=== PATIENT | female | born 1950 | race Caucasian/White ===

== ENCOUNTER 2022-01-04 05:33 | Observation (INO) | payer MEDICARE, OTHER ==
[~2022-01-04 05:33] MED LIST: ACETAMINOPHEN TAB 500 MG TAB PO PRN; GABAPENTIN 300 MG CAP PO PRN; MELOXICAM 7.5 MG TAB PO PRN; TRANEXAMIC ACID IN NACL,ISO-OS 1,000 MG in SALINE 1 100ML.BAG IVPB PRN
[2022-01-04] MEDS ORDERED: ONDANSETRON 4 MG/2 ML VIAL IVP ONE ×2 (05:48→08:59)
[2022-01-04] MEDS ORDERED: LIDOCAINE 1% (10MG/ML) FOR IV START INTRADERMA PRN (05:48)
[2022-01-04] MEDS: LACTATED RINGERS 1,000 ML IV SCH ×2 (05:59→10:24)
[2022-01-04] MEDS ORDERED: DEXAMETHASONE SOD PHOSPHATE 4 MG/ML 1 ML VIAL IVP ONE (06:31)
[2022-01-04] MEDS ORDERED: MIDAZOLAM 2 MG/2 ML VIAL IVP ONE (06:40)
[2022-01-04] MEDS ORDERED: fentaNYL (PF) 50 MCG/ML 2 ML AMP IVP ONE (06:40)
[2022-01-04] MEDS ORDERED: HYDROmorphone (PF) 1 MG/ML ONE (06:58)
[2022-01-04] MEDS ORDERED: SUCCINYLCHOLINE CHLORIDE 200 MG/10 ML VIAL IV ONE (06:58)
[2022-01-04] MEDS ORDERED: TRANEXAMIC ACID IN NACL,ISO-OS 1,000 MG/100 ML BAG ONE (06:58)
[2022-01-04] MEDS ORDERED: LIDOCAINE 2% INJ 20 MG/ML (2 ML VIAL) ONE (06:58)
[2022-01-04] MEDS ORDERED: PROPOFOL 10 MG/ML 20 ML VIAL IV ONE (06:58)
[2022-01-04] MEDS ORDERED: SODIUM CHLORIDE 0.9% (PF) 10 ML VIAL ONE (06:58)
[2022-01-04] MEDS ORDERED: ROPIVACAINE 5 MG/ML 30 ML VIAL ONE (06:58)
[2022-01-04] MEDS ORDERED: fentaNYL (PF) 50 MCG/ML 2 ML AMP ONE (06:58)
[2022-01-04] MEDS ORDERED: HYDROmorphone 0.5 MG/0.5 ML SYRINGE IVP PRN ×3 (07:00→08:47)
[2022-01-04] MEDS ORDERED: ceFAZolin 1,000 MG in SODIUM CHLORIDE 0.9% 1,000 ML IRRIGATION ONE (07:02)
[2022-01-04] MEDS ORDERED: ROPIVACAINE 0.2%-NS ON-Q PUMP 1,090 MG, EMPTY PAIN BALL 1 EACH MISCELLANE PRN (07:49)
--- NOTE | 2022-01-04 07:50 | P.ANPRN ---
Procedure Note - Anesthesia - Nerve Block Performed Right Adductor Canal Infusion Time Out Performed: Yes Date of Procedure: 01/04/22 Procedure Start Time: 06:34 Procedure Stop Time: 06:38 Location of Patient: PreOp Indication: Requested by Surgeon Specifically requested for management of pain by DrMayela: Papo Benitez Sedation Type: Sedate with meaningful contact maintained Preparation: Sterile Prep, Sterile Dressing Position: Supine Catheter: Indwelling Needle Types: Pajunk Needle Gauge: 18 Ultrasound used to visualize needle placement: Yes Ultrasound used to observe medication spread: Yes Injectate: 0.5% Ropivacaine (see comment for volume) (15 ml +10 ml NS PF) Blood Aspirated: No Pain Paresthesia on Injection Noted: No Resistance on Injection: Normal Image Stored and Saved: Yes Events: Uneventful and Well Tolerated
--- NOTE | 2022-01-04 07:52 | P.ANPRN ---
Procedure Note - Anesthesia - Nerve Block Performed Right iPack Single Time Out Performed: Yes Date of Procedure: 01/04/22 Procedure Start Time: 06:39 Procedure Stop Time: 06:45 Location of Patient: PreOp Indication: Requested by Surgeon Specifically requested for management of pain by DrMayela: Papo Benitez Sedation Type: Sedate with meaningful contact maintained Preparation: Sterile Prep Position: Left Lateral Needle Types: Pajunk Needle Gauge: 21 Ultrasound used to visualize needle placement: Yes Ultrasound used to observe medication spread: Yes Injectate: 0.5% Ropivacaine (see comment for volume) (15 ml +10 ml NS PF) Blood Aspirated: No Pain Paresthesia on Injection Noted: No Resistance on Injection: Normal Image Stored and Saved: Yes Events: Uneventful and Well Tolerated
[2022-01-04] MEDS ORDERED: LACTATED RINGERS 1,000 ML IV ONE (08:30)
[2022-01-04] MEDS ORDERED: NA PHOS,M-B/NA PHOS,DI-BA 133 ML ENEMA RECTAL PRN (08:47)
[2022-01-04] MEDS ORDERED: bisacodyL 10 MG SUPP RECTAL PRN (08:47)
[2022-01-04] MEDS ORDERED: MAGNESIUM HYDROXIDE 2,400 MG/10 ML CUP PO PRN (08:47)
[2022-01-04] MEDS ORDERED: ONDANSETRON 4 MG/2 ML VIAL IVP PRN (08:47)
[2022-01-04] MEDS ORDERED: NALOXONE 0.4 MG/ML 1 ML VIAL IV PRN (08:47)
--- NOTE | 2022-01-04 08:53 | P.OP ---
Date of Procedure: 01/04/22 Preoperative Diagnosis: Severe osteoarthritis right knee Postoperative Diagnosis: Severe osteoarthritis right knee Procedure(s) Performed: Right total knee arthroplasty Implants: Guzman [employer] Nephew Journey II CR Oxinium cruciate retaining femoral component size 6, right Guzman [employer]hew Journey nonporous tibial baseplate size 5, right Guzman [employer]hew Journey II, XLPE Deep Dished articular insert, size 10 mm, Size 5-6, right Guz[employer]hew Journey Nguyen II resurfacing patellar component, oval, 35 mm All components were cemented using Palacos R bone cement The articulation is Oxinium on polyethylene Anesthesia: IVETH Surgeon: Papo Benitez [employer] Teacher #1: Karissa Duque Estimated Blood Loss (ml): 30 Pathology: other (Bone and cartilage) Condition: stable Disposition: PACU Indications for Procedure: After failure of conservative treatment we discussed the surgical and nonsurgical treatment options at length. Patient wishes to proceed with a total knee arthroplasty. Complications specific to this procedure were discussed at length, including but not limited to infection, bleeding, stiffness, and nerve injury. Covid-19 was also discussed at length with the patient, and they are aware of the current policies and procedures. The patient was given the option of delaying surgery, but they elect to proceed knowing these risks. Patient is aware of all these complications and informed consent was obtained Operative Findings: The operative findings are consistent with severe osteoarthritis of the right knee Description of Procedure: Patient was seen in the preoperative area and the consent was reviewed and the operative site was marked with a skin marker. The patient verified the procedure and the operative site. An adductor canal pain catheter and an iPACK block was placed by anesthesia in the preoperative area. The patient was then brought to the operating room and given preoperative antibiotics intravenously. A gram of transexamic acid was given intravenously. A general anesthetic was administered by the anesthesia department. A tourniquet was placed on the upper thigh and the lower extremity was prepped with chlorhexidine and draped in usual sterile fashion. A universal timeout was then performed which confirmed the patient's name, surgical site, ALLERGIES, and consent. The lower extremity was then exsanguinated and tourniquet was inflated to 250 mmHg. A standard anterior midline approach to the knee was performed. The skin and subcutaneous tissue were sharply dissected down to the patellar tendon. A medial parapatellar arthrotomy was then performed. The knee was then extended, the patellar was everted, and the knee was again flexed. The infra-patellar fat pad was removed in order to enhance exposure. The anterior horns of both menisci were excised, and a release was performed to the posterior medial aspect of the knee. On gross visual inspection, there was complete loss of articular cartilage in the medial and patellofemoral joint spaces. There was also significant cartilage damage in the lateral compartment. There were multiple periarticular osteophytes globally about the knee which were then removed with a Ronguer. The femoral canal was then opened with the 9.5 mm intramedullary drill. The 8 mm intramedullary bartolome was then inserted into the femoral canal with the distal femoral cutting guide set for 5 of valgus. The distal femoral cutting block was then pinned in place. The intramedullary bartolome was then removed, and the distal femur was then cut. The cutting block was then removed and the cut was checked for symmetry. The resected bone was then measured to confirm the appropriate distal femoral resection. Next, the sizing guide was then placed and set for 3 external rotation based off of the epicondylar axis and Whitesides line. Pins were then placed and the drill holes, and the femur was sized with the sizing stylus. The pins were then removed, and the sizing guide was then removed. The spikes of the femoral block was then placed into the predrilled holes, and malleted into place. Two 45 mm pins were then placed into the fixation holes on the cutting block. An gerry wing was then used to ensure there would be no notching with the anterior cut. The anterior condyles were cut without notching. The anterior chord cut was then performed, followed by the posterior cut, posterior chamfer cut, and the anterior chamfer cut. The collateral ligaments were protected during the entire process. The cutting block was then removed. Any remaining bone and osteophytes were removed from the femur with a Ronguer. The femoral canal was plugged with autologous bone. Attention was then directed to the tibia. The remaining ACL was removed with a Ronguer, and the tibia was then gently subluxed forward with a large bent knee retractor. Any remaining menisci were excised. The posterior lateral corner was cauterized in order to coagulate the lateral geniculate artery. The extra medullary tibial cutting guide was then placed, set for the appropriate rotation, slope, and depth of resection. The proximal tibia cutting guide was then pinned in place. Proximal tibia was then cut and sized. The femoral trial was placed. A narrow saw blade was then used to remove the anterior intracondylar femoral bone. The CR notch trial was then placed. The tibial trial was placed with the appropriate-sized insert. The knee was able to fully extend and flex to 130 and was stable throughout all range of motion. The knee was then extended and the patella was everted. Patella was then measured, and then using an osteotomy guide, the patella was cut at the appropriate level. The patella was then measured and drilled and the patella trial was then placed. The knee was then taken through range of motion with the patella trial and the patella tracked normally using the no thumbs technique. The knee was then extended patella trial was then removed and the patella was everted. Knee was then flexed and lug holes were drilled through the femoral trial and the femoral trial was then removed. The tibial was then re-exposed, and the tibial broach guide was then pinned in place after it was set for the appropriate rotation to allow for the most coverage without overhang. The tibia was then reamed and broached. The cut surfaces of bone were then irrigated with pulsatile lavage. The knee was also irrigated with Irrisept solution. The components were then opened, the cement was mixed, and the components were then cemented in place. The cement wa s allowed to harden with the knee in full extension. After the cemented hardened, the tourniquet was released and hemostasis was obtained. A second gram of transexamic acid was given intravenously. The knee was again irrigated. The knee was again taken through range of motion and found to be stable throughout all range of motion of 0-130, and the patella tracked normally. The fascia was then closed with 0 Vicryl followed by #2 strata fix suture. The subcutaneous tissue was closed with 3-0 Vicryl and 3-0 strata fix. Exofin glue was used for the skin and placed with the knee in flexion. After the glue had dried, and Optafoam silver impregnated dressing was applied. The patient was then transferred to recovery room in stable condition. The phlebotomist lab assistant FREDERIC Guillen was required due the complexity surgery and the need for a skilled kindergarten teacher assistant. She assisted in positioning, draping, retraction, and closure of the wound.
--- NOTE | 2022-01-04 09:23 | XR ---
EXAMINATION TYPE: XR knee limited RT DATE OF EXAM: 01/04/2022 9:18 AM INDICATION: Patient age:Female; 71 years old; Reason for study: Evaluation for Postop abnormality and alignment; PHH. COMPARISON: None. TECHNIQUE: The Right knee(s) was examined in frontal and lateral projections. FINDINGS: Postsurgical changes from right total knee arthroplasty with distal femoral and proximal tibial components. Hardware appears intact with appropriate alignment. No acute fracture or dislocati on. There is associated soft tissue swelling and gas. IMPRESSION: Postsurgical changes from right total knee arthroplasty. Hardware appears intact with appropriate ali gnment.
[2022-01-04] MEDS: HYDROcodone/APAP 7.5-325MG 1 EACH TAB PO PRN ×2 (13:59→20:56)
[2022-01-04] MEDS: SODIUM CHLORIDE 0.9% 1,000 ML IV SCH (15:02)
[2022-01-04] MEDS ORDERED: ALBUTEROL NEBULIZED 2.5 MG/3 ML INHALATION PRN (16:01)
[2022-01-04] MEDS ORDERED: LORazepam 0.5 MG TAB PO PRN (16:01)
[2022-01-04] MEDS: HYDROmorphone 0.5 MG/0.5 ML SYRINGE IVP PRN (16:54)
--- NOTE | 2022-01-04 17:37 | P.CONS ---
History of Present Illness - Reason for Consult Consult date: 01/04/22 - History of Present Illness Patient is a 71-year-old female with PMH of hypertension, depression, seasonal ALLERGIES, anxiety, history of PE the presents to [facility] for elective surgery. She underwent right total knee arthroplasty. [facility] is being consulted for medical management of this patient. Patient currently reports 8 out of 10 severity pain in her right knee. Urinating freely. No bowel movement yet. She denies any headache, lower extremity edema, nausea vomiting, fever or chills, cough, chest pain, shortness of breath, palpitations, changes in appetite or weight. She denies any dizziness, numbness/weakness/tingling of the extremities. Review of systems is performed and is negative except above. General: non toxic, no distress, appears at stated age Derm: warm, dry Head: atraumatic, normocephalic, symmetric Eyes: EOMI, no lid lag, anicteric sclera Mouth: no lip lesion, mucus membranes moist Cardiovascular: S1S2 reg, no murmur, positive posterior tibial pulse bilateral, Lungs: CTA bilateral, no rhonchi, no rales , no accessory muscle use Abdominal: soft, nontender to palpation, no guarding, no appreciable organomegaly Ext: no gross muscle atrophy, no edema, right knee dressing clean dry and intact Neuro: CN II-XI grossly intact, no focal neuro deficits Psych: Alert, oriented, appropriate affect #Hypertension #Depression #Seasonal ALLERGIES #Anxiety #History of pulmonary embolus Restart amlodipine and hydrochlorothiazide. Monitor vitals, adjust medication if necessary. Restart Lexapro. Restart Claritin. Ativan as needed for anxiety. Restart Eliquis. DVT prophylaxis: Eliquis Discussed with: Patient, nursing Anticipated discharge: 1-[address]: [facility] A total of 30 minutes was spent on the care of this complex patient more than 50% of the time was spent in counseling and care coordination. Past Medical History Past Medical History: Hyperlipidemia, Hypertension, Osteoarthritis (OA), Pulmonary Embolus (PE), Supraventricular Tachycardia (SVT) Additional Past Medical History / Comment(s): PE 15 yrs. ago, seasonal allergies History of Any Multi-Drug Resistant Organisms: None Reported Past Surgical History: Adenoidectomy, Cardiac Ablation, Hysterectomy, Orthopedic Surgery, Tonsillectomy Additional Past Surgical History / Comment(s): melissa thumb joints replaced, right knee arthroscopy Past Anesthesia/Blood Transfusion Reactions: No Reported Reaction Additional Past Anesthesia/Blood Transfusion Reaction / Comm: no blood transfusion reactions Past Psychological History: Anxiety, Depression Smoking Status: Former smoker Past Alcohol Use History: Rare Additional Past Alcohol Use History / Comment(s): quit smoking 20 yrs. ago, smoked occasionally, not daily Past Drug Use History: None Reported - Past Family History Mother Family Medical History: No Reported History Medications and Allergies Home Medications Medication Instructions Recorded Confirmed Type Albuterol Inhaler [Ventolin Hfa 1 - 2 puff INHALATION Q6H PRN 01/03/22 01/04/22 History Inhaler] Apixaban [Eliquis] 2.5 mg PO BID 01/03/22 01/04/22 History Ascorbic Acid [Vitamin C] 500 mg PO DAILY 01/03/22 01/04/22 History Aspirin 81 mg PO DAILY 01/03/22 01/04/22 History Cholecalciferol [Vitamin D3 (25 25 mcg PO DAILY 01/03/22 01/04/22 History Mcg = 1000 Iu)] Escitalopram [Lexapro] 10 mg PO DAILY 01/03/22 01/04/22 History Estradiol Cream [Estrace Cream 1 gm VAGINAL Q3D 01/03/22 01/04/22 History 0.01%] LORazepam [Ativan] 0.5 mg PO DAILY PRN 01/03/22 01/04/22 History Loratadine [Claritin] 10 mg PO DAILY 01/03/22 01/04/22 History Losartan Potassium [Cozaar] 50 mg PO DAILY 01/03/22 01/04/22 History Rosuvastatin Calcium 5 mg PO HS 01/03/22 01/04/22 History Zinc Gluconate [Zinc] 50 mg PO DAILY 01/03/22 01/04/22 History amLODIPine [Norvasc] 5 mg PO DAILY 01/03/22 01/04/22 History hydroCHLOROthiazide [Hydrodiuril] 25 mg PO DAILY 01/03/22 01/04/22 History HYDROcodone/APAP 7.5-325MG [[place] 1 - 2 tab PO Q6H PRN #32 tab 01/04/22 Rx 7.5-325] Sennosides [Senokot] 2 tab PO DAILY PRN #60 tablet 01/04/22 Rx Allergies Allergy/AdvReac Type Severity Reaction Status Date / Time No Known Allergies Allergy Verified 01/04/22 05:50 Physical Exam Vitals: Vital Signs Temp Pulse Pulse Resp BP BP Pulse Ox 01/04/22 14:11 97.7 F 86 16 112/66 94 L 01/04/22 13:20 82 16 111/63 97 01/04/22 12:30 88 16 110/66 98 01/04/22 12:00 80 16 106/63 98 01/04/22 11:30 84 16 99/59 97 01/04/22 11:00 85 16 110/63 98 01/04/22 10:30 83 16 104/63 96 01/04/22 10:00 80 16 117/58 96 01/04/22 09:35 77 16 109/57 94 L 01/04/22 09:20 81 16 99/57 95 01/04/22 09:04 85 16 93/55 98 01/04/22 08:49 67 16 91/51 95 01/04/22 08:34 97.3 F L 83 16 92/55 92 L 01/04/22 06:57 78 18 124/58 100 01/04/22 06:09 98.6 F 72 18 140/63 98 Intake and Output 01/04/22 01/04/22 01/04/22 06:59 14:59 22:59 Intake Total 100 2151 Output Total 30 Balance 100 2121 Intake: IV 100 2151 Output: Estimated Blood Loss 30 Other: # Voids 2 Weight 83.6 kg 83.6 kg
[2022-01-04] MEDS: SENNOSIDES-DOCUSATE SODIUM 1 EACH TAB PO SCH (20:56)
[2022-01-04] MEDS: APIXABAN 2.5 MG TABLET PO SCH (20:56)
[2022-01-04] MEDS: ATORVASTATIN 10 MG TAB PO SCH (20:56)
[2022-01-05] MEDS: HYDROmorphone 0.5 MG/0.5 ML SYRINGE IVP PRN ×5 (00:15→23:53)
[2022-01-05] MEDS: SODIUM CHLORIDE 0.9% 1,000 ML IV SCH ×2 (00:16→14:36)
[2022-01-05] MEDS: HYDROcodone/APAP 7.5-325MG 1 EACH TAB PO PRN ×4 (05:14→22:06)
--- NOTE | 2022-01-05 07:31 | P.PN ---
Progress Note - Text Progress Note Date: 01/05/22 patient was seen and evaluated at bedside. Status post postoperative day 1 f or right side total knee arthroplasty patient had adductor canal catheter for postop pain control. Patient rated pain at rest4-5 out of 10 in severity. Patient describes pain is aching, throbbing type on the sides of the knee and back of the knee. Patient started walking with support. With activity patient pain levels are 5-6 out of 10 in severity. With the help of oral pain medications pain levels are tolerable. Patient denied any weakness/ numbness in lower extremities. patient denied any fever, pain over the catheter site. Physical exam: Patient vital signs stable Patient is alert awake oriented 3 responding to all questions appropriately Examination of the catheter site showed dressing intact, no leaking fluid around the catheter, no redness, no tenderness over the catheter insertion area. plan: status post postoperative day 1 for right total knee arthroplasty with adductor canal catheter for pain control. Patient was discussed to continue the medication at the rate of 8 mL per hour until the pump is completely empty and instructed the patient how to discontinue the catheter.
[2022-01-05 09:00] LABS: Basophils # (A) 0.02 X 10*3/uL (0.00-0.10); Basophils % (A) 0.3 %; Eosinophils # (A) 0.02 X 10*3/uL (0.04-0.35); Eosinophils % (A) 0.3 %; HCT 29.4 % (37.2-46.3); Immature Grans, Automated 0.2 %; Lymphocytes # (A) 0.86 X 10*3/uL (0.90-5.00); Lymphocytes % (A) 14.8 %; MCH 32.1 pg (27.0-32.0); MCV 94.2 fL (80.0-97.0); Mean Platelet Volume 10.3 fL (9.5-12.2); Monocytes % (A) 13.7 %; NRBC Per 100 WBC 0 /100 WBCS (0.0-0.0); Neutrophils # (A) 4.11 X 10*3/uL (1.80-7.70); Neutrophils % (A) 70.7 %; Platelet Count 240 X 10*3/uL (140-440); RBC 3.12 X 10*6/uL (4.10-5.20); RDW 13.5 % (11.5-14.5); WBC 5.82 X 10*3/uL (4.50-10.00)
[2022-01-05] MEDS: LOSARTAN 50 MG TAB PO SCH (11:02)
[2022-01-05] MEDS: ASPIRIN 81 MG PO SCH (11:02)
[2022-01-05] MEDS: LORATADINE 10 MG TAB PO SCH (11:03)
[2022-01-05] MEDS: amLODIPine 5 MG TAB PO SCH (11:03)
[2022-01-05] MEDS: ESCITALOPRAM 10 MG TAB PO SCH (11:03)
[2022-01-05] MEDS: hydroCHLOROthiazide 25 MG TAB PO SCH (11:03)
[2022-01-05] MEDS: APIXABAN 2.5 MG TABLET PO SCH ×2 (11:03→20:06)
--- NOTE | 2022-01-05 12:53 | P.DS ---
Providers Expected date of discharge: 01/05/22 Attending physician: Papo Benitez Consults: 01/04/22 08:47 Consult Physician Routine Consulting Provider: Dawn Oliva Consult Reason/Comments: medical management Do you want consulting provider notified?: Yes Primary care physician: Physician Nonstaff - Discharge Diagnosis(es) (1) Osteoarthritis of right knee Current Visit: Yes Status: Acute (2) Status post total right knee replacement Current Visit: Yes Status: Acute Hospital Course: This is a 71year-old female with history of degenerative arthritis of the right knee. The patient has failed conservative outpatient treatment and elects to proceed with total right knee arthroplasty. The patient is evaluated by the primary care physician and cleared for surgery. The patient is admitted to [facility] on 01/04/2022 for total right knee arthroplasty. The procedure is performed without complication or sequelae. The patient is doing well postoperatively. Vital signs and labs are stable. The patient is discharged to Inpatient rehabilitation today in good condition. Please see med rec for accurate list of home medications. Patient Condition at Discharge: Good Plan - Discharge Summary Discharge Rx Participant: Yes New Discharge Prescriptions: New Sennosides [Senokot] 2 tab PO DAILY PRN #60 tablet PRN Reason: Constipation HYDROcodone/APAP 7.5-325MG [[place] 7.5-325] 1 - 2 tab PO Q6H PRN #32 tab PRN Reason: Pain No Action Ascorbic Acid [Vitamin C] 500 mg PO DAILY hydroCHLOROthiazide [Hydrodiuril] 25 mg PO DAILY Estradiol Cream [Estrace Cream 0.01%] 1 gm VAGINAL Q3D Cholecalciferol [Vitamin D3 (25 Mcg = 1000 Iu)] 25 mcg PO DAILY Apixaban [Eliquis] 2.5 mg PO BID Losartan Potassium [Cozaar] 50 mg PO DAILY Zinc Gluconate [Zinc] 50 mg PO DAILY Albuterol Inhaler [Ventolin Hfa Inhaler] 1 - 2 puff INHALATION Q6H PRN PRN Reason: Shortness Of Breath Loratadine [Claritin] 10 mg PO DAILY Escitalopram [Lexapro] 10 mg PO DAILY LORazepam [Ativan] 0.5 mg PO DAILY PRN PRN Reason: Anxiety amLODIPine [Norvasc] 5 mg PO DAILY Aspirin 81 mg PO DAILY Rosuvastatin Calcium 5 mg PO HS Discharge Medication List Albuterol Inhaler [Ventolin Hfa Inhaler] 1 - 2 puff INHALATION Q6H PRN 01/03/22 [History] Apixaban [Eliquis] 2.5 mg PO BID 01/03/22 [History] Ascorbic Acid [Vitamin C] 500 mg PO DAILY 01/03/22 [History] Aspirin 81 mg PO DAILY 01/03/22 [History] Cholecalciferol [Vitamin D3 (25 Mcg = 1000 Iu)] 25 mcg PO DAILY 01/03/22 [History] Escitalopram [Lexapro] 10 mg PO DAILY 01/03/22 [History] Estradiol Cream [Estrace Cream 0.01%] 1 gm VAGINAL Q3D 01/03/22 [History] LORazepam [Ativan] 0.5 mg PO DAILY PRN 01/03/22 [History] Loratadine [Claritin] 10 mg PO DAILY 01/03/22 [History] Losartan Potassium [Cozaar] 50 mg PO DAILY 01/03/22 [History] Rosuvastatin Calcium 5 mg PO HS 01/03/22 [History] Zinc Gluconate [Zinc] 50 mg PO DAILY 01/03/22 [History] amLODIPine [Norvasc] 5 mg PO DAILY 01/03/22 [History] hydroCHLOROthiazide [Hydrodiuril] 25 mg PO DAILY 01/03/22 [History] HYDROcodone/APAP 7.5-325MG [[place] 7.5-325] 1 - 2 tab PO Q6H PRN #32 tab 01/04/22 [Rx] Sennosides [Senokot] 2 tab PO DAILY PRN #60 tablet 01/04/22 [Rx] Follow up Appointment(s)/Referral(s): Papo Benitez DO [Doctor of Osteopathic Medicine] - 01/17/22 2:45 pm Activity/Diet/Wound Care/Special Instructions: Weightbearing as tolerated with a walker. CPM 5-6h daily as tolerated. Leave dressing intact. Dressing may be removed by home care nurse or by patient in 7 days. Then change dressing twice daily until follow up. May shower with initial dressing intact and after removal. If dressing become saturated, please remove. Recommend use of compression stockings daily until follow up to help prevent swelling and blood clots. May remove at night before sleeping. Please resume Eliquis. Please follow up with [facility] and call with any questions or concerns, . Discharge Disposition: TRANSFER TO SNF/ECF
--- NOTE | 2022-01-05 13:54 | P.PN ---
Subjective Progress Note Date: 01/05/22 Patient was seen and examined. No acute events overnight. Patient reports continued hip pain at the site of surgery. Continues to require Dilaudid. General: non toxic, no distress, appears at stated age Derm: warm, dry Head: atraumatic, normocephalic, symmetric Eyes: EOMI, no lid lag, anicteric sclera Mouth: no lip lesion, mucus membranes moist Cardiovascular: S1S2 reg, no murmur, positive posterior tibial pulse bilateral Lungs: CTA bilateral, no rhonchi, no rales , no accessory muscle use Ext: no gross muscle atrophy, no edema, right knee dressing clean dry and intact Neuro: no focal neuro deficits Psych: Alert, oriented, appropriate affect #Hypertension #Depression #Seasonal ALLERGIES #Anxiety #History of pulmonary embolus Restart amlodipine and hydrochlorothiazide. Monitor vitals, adjust medication if necessary. Restart Lexapro. Restart Claritin. Ativan as needed for anxiety. Restart Eliquis. DVT prophylaxis: Eliquis Discussed with: Patient, nursing Medically stable. Needs better pain management. Anticipate DC to SNF or home in the next 1-2 days. Case management on board. Objective - Vital Signs Vital signs: Vital Signs Temp 98.4 F 01/05/22 13:09 Pulse 71 01/05/22 13:09 Resp 16 01/05/22 13:09 BP 147/67 01/05/22 13:09 Pulse Ox 91 L 01/05/22 13:09 FiO2 Intake & Output 01/04/22 01/05/22 01/05/22 18:59 06:59 18:59 Intake Total 2151 Output Total 30 Balance 2120 Weight 83.6 kg Intake: IV 2151 Output: Estimated Blood Loss 30 Other: Voiding Method Toilet Toilet # Voids 2 4 2 - Labs CBC & Chem 7: 01/05/22 05:17 Labs: Abnormal Lab Results - Last 24 Hours (Table) 01/05/22 Range/Units 05:17 RBC 3.12 L (4.10-5.20) X 10*6/uL Hgb 10.0 L (12.0-15.0) g/dL Hct 29.4 L (37.2-46.3) % MCH 32.1 H (27.0-32.0) pg Lymphocytes # 0.86 L (0.90-5.00) X 10*3/uL Eosinophils # 0.02 L (0.04-0.35) X 10*3/uL
[2022-01-05] MEDS: ATORVASTATIN 10 MG TAB PO SCH (20:06)
[2022-01-05] MEDS: SENNOSIDES-DOCUSATE SODIUM 1 EACH TAB PO SCH (20:06)
[2022-01-06] MEDS: HYDROcodone/APAP 7.5-325MG 1 EACH TAB PO PRN ×4 (05:37→22:26)
[2022-01-06] MEDS: ASPIRIN 81 MG PO SCH (08:38)
[2022-01-06] MEDS: amLODIPine 5 MG TAB PO SCH (08:38)
[2022-01-06] MEDS: LORATADINE 10 MG TAB PO SCH (08:38)
[2022-01-06] MEDS: APIXABAN 2.5 MG TABLET PO SCH ×2 (08:38→20:18)
[2022-01-06] MEDS: LOSARTAN 50 MG TAB PO SCH (08:38)
[2022-01-06] MEDS: hydroCHLOROthiazide 25 MG TAB PO SCH (08:38)
[2022-01-06] MEDS: ESCITALOPRAM 10 MG TAB PO SCH (08:38)
--- NOTE | 2022-01-06 12:44 | P.PN ---
Subjective Progress Note Date: 01/06/22 This is a 71-year-old female who is status post right total arthroplasty. This is postoperative day #2 and patient is seen and evaluated at bedside today. Patient states that she is doing well and her pain is controlled. Patient states that she feels she needs a little more time with physical therapy before she goes home. Objective - Vital Signs Vital signs: Vital Signs Temp 98.0 F 01/06/22 12:26 Pulse 80 01/06/22 07:20 Resp 16 01/06/22 07:20 BP 118/67 01/06/22 07:20 Pulse Ox 93 L 01/06/22 07:20 FiO2 Intake & Output 01/05/22 01/06/22 01/06/22 18:59 06:59 18:59 Intake Total 180 Balance 180 Intake: Oral 180 Other: Voiding Method Toilet # Voids 1 4 1 - Exam Vital signs are stable. Patient is in no acute distress and is alert and oriented 3. Calf is soft and nontender to palpation. Dressing is clean, dry, and intact. Patient has full foot and ankle motion without pain or difficulty. Sensation intact. Neurovascular status and circulatory status are intact. - Labs CBC & Chem 7: 01/05/22 05:17 Assessment and Plan (1) Osteoarthritis of right knee Current Visit: Yes Status: Acute Code(s): M17.11 - UNILATERAL PRIMARY OSTEOARTHRITIS, RIGHT KNEE SNOMED Code(s): 771687298129504 (2) Status post total right knee replacement Current Visit: Yes Status: Acute Code(s): Z96.651 - PRESENCE OF RIGHT ARTIFICIAL KNEE JOINT SNOMED Code(s): 5602865669442 Plan: #1 Continue with routine postoperative care and pain control, leave dressing in place for seven days. #2 Anticoagulation with Eliquis. #3 Physical therapy and CPM today. #4 Appreciate input from medicine. #5 Anticipate discharge home with home care tomorrow.
--- NOTE | 2022-01-06 14:43 | P.PN ---
Subjective Progress Note Date: 01/06/22 Patient was seen and examined. No acute events overnight. Patient reports continued hip pain at the site of surgery. Working with PT and OT. General: non toxic, no distress, appears at stated age Derm: warm, dry Head: atraumatic, normocephalic, symmetric Eyes: EOMI, no lid lag, anicteric sclera Mouth: no lip lesion, mucus membranes moist Cardiovascular: S1S2 reg, no murmur, positive posterior tibial pulse bilateral Lungs: CTA bilateral, no rhonchi, no rales , no accessory muscle use Ext: no gross muscle atrophy, no edema, right knee dressing clean dry and intact Neuro: no focal neuro deficits Psych: Alert, oriented, appropriate affect #Hypertension #Depression #Seasonal ALLERGIES #Anxiety #History of pulmonary embolus Restart amlodipine and hydrochlorothiazide. Monitor vitals, adjust medication if necessary. Restart Lexapro. Restart Claritin. Ativan as needed for anxiety. Restart Eliquis. DVT prophylaxis: Eliquis Discussed with: Patient, nursing Medically stable. Needs better pain management. Rejected from SNF. Plans on DC home. Objective - Vital Signs Vital signs: Vital Signs Temp 98.0 F 01/06/22 12:26 Pulse 80 01/06/22 07:20 Resp 16 01/06/22 07:20 BP 118/67 01/06/22 07:20 Pulse Ox 93 L 01/06/22 07:20 FiO2 Intake & Output 01/05/22 01/06/22 01/06/22 18:59 06:59 18:59 Intake Total 180 Balance 180 Intake: Oral 180 Other: Voiding Method Toilet # Voids 1 4 1 - Labs CBC & Chem 7: 01/05/22 05:17
[2022-01-06] MEDS: SENNOSIDES-DOCUSATE SODIUM 1 EACH TAB PO SCH (20:18)
[2022-01-06] MEDS: ATORVASTATIN 10 MG TAB PO SCH (20:18)
[2022-01-07] MEDS: HYDROcodone/APAP 7.5-325MG 1 EACH TAB PO PRN ×2 (04:43→10:39)
[2022-01-07 08:00] VITALS: BP 130/72; PULSE 72; RESP 18; TEMP 97.8
[2022-01-07] MEDS: LOSARTAN 50 MG TAB PO SCH (08:07)
[2022-01-07] MEDS: ASPIRIN 81 MG PO SCH (08:07)
[2022-01-07] MEDS: LORATADINE 10 MG TAB PO SCH (08:08)
[2022-01-07] MEDS: ESCITALOPRAM 10 MG TAB PO SCH (08:08)
[2022-01-07] MEDS: amLODIPine 5 MG TAB PO SCH (08:08)
[2022-01-07] MEDS: hydroCHLOROthiazide 25 MG TAB PO SCH (08:08)
[2022-01-07] MEDS: APIXABAN 2.5 MG TABLET PO SCH (08:08)
--- NOTE | 2022-01-07 09:59 | P.DS ---
Providers Date of admission: 01/06/22 08:01 Expected date of discharge: 01/07/22 Attending physician: Papo Benitez Consults: 01/04/22 08:47 Consult Physician Routine Consulting Provider: Dawn Oliva Consult Reason/Comments: medical management Do you want consulting provider notified?: Yes Primary care physician: Physician Nonstaff - Discharge Diagnosis(es) (1) Osteoarthritis of right knee Current Visit: Yes Status: Acute (2) Status post total right knee replacement Current Visit: Yes Status: Acute Hospital Course: This is a 71-year-old female with known history of degenerative arthritis of the right knee. The patient presented for evaluation as an outpatient. After discussion and consideration patient elects to proceed with total knee arthroplasty. The patient is seen preoperatively by Dr. Benitez and medically cleared for surgery by their primary care physician. Patient is admitted to [facility] on 01/04/2022 for total knee arthroplasty. The procedure is performed without complication or sequelae. The patient is doing well postoperatively. Labs and vital signs are stable on day of discharge. On day of discharge patient's knee incision is healing well. There is minimal erythema. There is no drainage noted at this time. There is minimal soft tissue swelling to the knee. Patient has full foot and ankle motion without difficulty or pain. Calf is soft and nontender to palpation. Neurovascular status to the right lower extremity is intact. Patient is discharged home in good condition. Please see med rec for accurate list of home medications. Patient Condition at Discharge: Good Plan - Discharge Summary Discharge Rx Participant: Yes New Discharge Prescriptions: New Sennosides [Senokot] 2 tab PO DAILY PRN #60 tablet PRN Reason: Constipation HYDROcodone/APAP 7.5-325MG [Brilliant 7.5-325] 1 - 2 tab PO Q6H PRN #32 tab PRN Reason: Pain No Action Ascorbic Acid [Vitamin C] 500 mg PO DAILY hydroCHLOROthiazide [Hydrodiuril] 25 mg PO DAILY Estradiol Cream [Estrace Cream 0.01%] 1 gm VAGINAL Q3D Cholecalciferol [Vitamin D3 (25 Mcg = 1000 Iu)] 25 mcg PO DAILY Apixaban [Eliquis] 2.5 mg PO BID Losartan Potassium [Cozaar] 50 mg PO DAILY Zinc Gluconate [Zinc] 50 mg PO DAILY Albuterol Inhaler [Ventolin Hfa Inhaler] 1 - 2 puff INHALATION Q6H PRN PRN Reason: Shortness Of Breath Loratadine [Claritin] 10 mg PO DAILY Escitalopram [Lexapro] 10 mg PO DAILY LORazepam [Ativan] 0.5 mg PO DAILY PRN PRN Reason: Anxiety amLODIPine [Norvasc] 5 mg PO DAILY Aspirin 81 mg PO DAILY Rosuvastatin Calcium 5 mg PO HS Discharge Medication List Albuterol Inhaler [Ventolin Hfa Inhaler] 1 - 2 puff INHALATION Q6H PRN 01/03/22 [History] Apixaban [Eliquis] 2.5 mg PO BID 01/03/22 [History] Ascorbic Acid [Vitamin C] 500 mg PO DAILY 01/03/22 [History] Aspirin 81 mg PO DAILY 01/03/22 [History] Cholecalciferol [Vitamin D3 (25 Mcg = 1000 Iu)] 25 mcg PO DAILY 01/03/22 [History] Escitalopram [Lexapro] 10 mg PO DAILY 01/03/22 [History] Estradiol Cream [Estrace Cream 0.01%] 1 gm VAGINAL Q3D 01/03/22 [History] LORazepam [Ativan] 0.5 mg PO DAILY PRN 01/03/22 [History] Loratadine [Claritin] 10 mg PO DAILY 01/03/22 [History] Losartan Potassium [Cozaar] 50 mg PO DAILY 01/03/22 [History] Rosuvastatin Calcium 5 mg PO HS 01/03/22 [History] Zinc Gluconate [Zinc] 50 mg PO DAILY 01/03/22 [History] amLODIPine [Norvasc] 5 mg PO DAILY 01/03/22 [History] hydroCHLOROthiazide [Hydrodiuril] 25 mg PO DAILY 01/03/22 [History] HYDROcodone/APAP 7.5-325MG [Brilliant 7.5-325] 1 - 2 tab PO Q6H PRN #32 tab 01/04/22 [Rx] Sennosides [Senokot] 2 tab PO DAILY PRN #60 tablet 01/04/22 [Rx] Follow up Appointment(s)/Referral(s): [facility], [NON-STAFF] - 1-2 Days ([facility] will call you to schedule your in home physical therapy visits. ) Papo Benitez DO [Doctor of Osteopathic Medicine] - 01/17/22 2:45 pm Activity/Diet/Wound Care/Special Instructions: Weightbearing as tolerated with a walker. Leave dressing intact. Dressing may be removed by home care nurse or by patient in 7 days. Then change dressing twice daily until follow up. May shower with initial dressing intact and after removal. If dressing become saturated, please remove. Recommend use of compression stockings daily until follow up to help prevent swelling and blood clots. May remove at night before sleeping. Please resume Eliquis. Please follow up with [facility] and call with any questions or concerns, . Discharge Disposition: HOME WITH HOME HEALTH SERVICES
--- NOTE | 2022-01-07 10:12 | P.PN ---
Subjective Progress Note Date: 01/07/22 Patient was seen and examined. No acute events overnight. Patient reports continued hip pain at the site of surgery. Working with PT and OT. General: non toxic, no distress, appears at stated age Derm: warm, dry Head: atraumatic, normocephalic, symmetric Eyes: EOMI, no lid lag, anicteric sclera Mouth: no lip lesion, mucus membranes moist Cardiovascular: S1S2 reg, no murmur Lungs: CTA bilateral, no rhonchi, no rales , no accessory muscle use Ext: no gross muscle atrophy, no edema, right knee dressing clean dry and intact Neuro: no focal neuro deficits Psych: Alert, oriented, appropriate affect #Hypertension #Depression #Seasonal ALLERGIES #Anxiety #History of pulmonary embolus Restart amlodipine and hydrochlorothiazide. Monitor vitals, adjust medication if necessary. Restart Lexapro. Restart Claritin. Ativan as needed for anxiety. Restart Eliquis. DVT prophylaxis: Eliquis Discussed with: Patient, nursing Medically stable. Plans on DC home. Objective - Vital Signs Vital signs: Vital Signs Temp 97.8 F 01/07/22 07:59 Pulse 72 01/07/22 07:59 Resp 18 01/07/22 07:59 BP 130/72 01/07/22 07:59 Pulse Ox 95 01/07/22 07:59 FiO2 Intake & Output 01/06/22 01/07/22 01/07/22 18:59 06:59 18:59 Other: # Voids 1 4 - Labs CBC & Chem 7: 01/05/22 05:17
[2022-01-07 10:37] LABS: Basophils # (A) 0.04 X 10*3/uL (0.00-0.10); Basophils % (A) 0.8 %; Eosinophils # (A) 0.11 X 10*3/uL (0.04-0.35); Eosinophils % (A) 2.3 %; HCT 28.7 % (37.2-46.3); HGB 9.5 g/dL (12.0-15.0); Immature Grans, Automated 0.4 %; Lymphocytes # (A) 0.78 X 10*3/uL (0.90-5.00); Lymphocytes % (A) 16.3 %; MCHC 33.1 g/dL (32.0-37.0); MCV 93.8 fL (80.0-97.0); Mean Platelet Volume 10.3 fL (9.5-12.2); Monocytes # (A) 0.51 X 10*3/uL (0.20-1.00); Monocytes % (A) 10.6 %; NRBC Per 100 WBC 0 /100 WBCS (0.0-0.0); Neutrophils # (A) 3.34 X 10*3/uL (1.80-7.70); Neutrophils % (A) 69.6 %; Platelet Count 212 X 10*3/uL (140-440); RBC 3.06 X 10*6/uL (4.10-5.20); RDW 13.1 % (11.5-14.5)
== END 2022-01-07 13:40 | disposition home health service (06) ==
LOC: OR 05:33 → 4SSUR 08:30 → OR 01-06 08:01 → 4SSUR 01-06 08:01
PROVIDERS: ADMIT Orthopaedic Surgery; ATTEND Orthopaedic Surgery
DX: M17.11 Unilateral primary osteoarthritis, right knee (principal); M25.761 Osteophyte, right knee; I11.9 Hypertensive heart disease without heart failure; E78.5 Hyperlipidemia, unspecified; F32.A Depression, unspecified; R45.0 Nervousness; Z86.711 Personal history of pulmonary embolism; E78.00 Pure hypercholesterolemia, unspecified; E87.1 Hypo-osmolality and hyponatremia; M81.0 Age-related osteoporosis without current pathological fracture; F41.9 Anxiety disorder, unspecified; I73.9 Peripheral vascular disease, unspecified; I47.1 Supraventricular tachycardia; I25.10 Atherosclerotic heart disease of native coronary artery without angina pectoris; I08.0 Rheumatic disorders of both mitral and aortic valves; Z86.718 Personal history of other venous thrombosis and embolism; Z97.3 Presence of spectacles and contact lenses; Z98.890 Other specified postprocedural states; Z83.3 Family history of diabetes mellitus; Z82.49 Family history of ischemic heart disease and other diseases of the circulatory system; Z79.82 Long term (current) use of aspirin; Z79.899 Other long term (current) drug therapy
CPT/HCPCS: 27447; 97116 ×2; 97530; 97161; 97535 ×2; 97166; 64999; 64448; 76942; 85025 ×2; 88300; 73560; G0378 ×2; C1713; C1776; J2250; J0330; J1100; J0690 ×3; J2405 ×2; J3010; J1170 ×3; J2795 ×2; J2704; J1790; J2001